=== PATIENT | male | born 1950 | race Caucasian/White ===

== ENCOUNTER 2023-07-11 19:23 | Observation (INO) | payer MEDICARE, OTHER, SELFPAY ==
[2023-07-11] VITALS (9 sets, daily range): BP systolic 109–148; BP diastolic 52–83; BMI 25.8; BMI 25.0
--- NOTE | 2023-07-11 13:56 | ED.GENMED ---
History of Present Illness
General
Chief Complaint: Chest Pain
Time Seen by Provider: 07/11/23 13:56
Travel History
Have you had any contact with someone who has COVID-19?: No
Do you have any symptoms of coronavirus? Fever > 100 degrees, chills, cough, shortness of breath, sore throat, loss of taste or smell, muscle aches, or headache?: No
History of Present Illness
History of Present Illness:
HPI: Patient presents due to chest discomfort located in the middle of his chest that started about 2 hours ago. He does have a history of CAD with stents and has had cardiac arrest in the past. His symptoms are currently resolved. He did have
nitroglycerin earlier. It is not clear if the nitroglycerin was clearly the cause of his resolution of pain.
EXAM:
GENERAL: Well appearing in no distress
HEENT: Moist oral mucosa
CARDIOVASCULAR: No murmurs, normal heart rate and rhythm, No chest wall tenderness
PULMONARY: No respiratory distress, breath sounds are clear and equal
ABDOMEN: Soft with no peritoneal signs, no tenderness
NEUROLOGIC: Excellent strength all extremities, no coordination deficits
PSYCHIATRIC: Appropriate mental status, normal insight and judgement
EXTREMITIES: Nontender, no edema, moves all extremities equally
SKIN: No rash, no lesions
ED COURSE:
2 PM: I initially evaluated patient
NUMBER AND COMPLEXITY OF PROBLEMS ADDRESSED AT THE ENCOUNTER
� Chronic conditions affecting care: CAD/coronary stents, [place], has pacemaker, he has had cardiac arrest in the past
� Acute Exacerbation and/or Progression of Chronic Illness: This is an acute problem
� Differential Diagnosis includes: ACS, dysrhythmia
AMOUNT AND/OR COMPLEXITY OF DATA TO BE REVIEWED AND ANALYZED
� I performed an independent evaluation of and my interpretation is:
EKG: AV paced, rate of 89, LVH with associated ST abnormality
CT:
X-rays:
Laboratory Studies: Initial troponin less than 0.012, repeat 0.013, chemistries and CBC relatively unremarkable
Other:
� Review of other/old records: I reviewed echo from 06/29/2023 that shows evidence for LVH, EF 60 to 65%
� Clinical information was obtained by an independent historian: I spoke to son at bedside
� Prescriptions/Medications Considered but not given:
� Further testing considered but not performed:
RISK OF COMPLICATIONS AND/OR MORBIDITY OR MORTALITY OF PATIENT MANAGEMENT
� Social determinants of health affecting care: Lives at home
� Discussion with other providers: Discussed with cardiology and notified hospitalist at about 5:20 PM for admission
� Escalation of care including admission/observation vs risk of discharge considered: Cardiology prefers patient stay in the hospital. Initial troponin is relatively unremarkable. He has remained comfortable in his stay in the
ER. He describes no exertional symptoms.
Past History
Past History
ED Past Medical History: CAD, GERD, Hypercholesterolemia, [place], Other (History of vasovagal syncope in the past), Other (hepatitis C, asbestosis) and Other (shingles in R groin and R back, hemorrhoids)
ED Past Surgical History: Appendectomy and Cardiac (Single-vessel LAD angioplasty with stenting Jul 2018, Stents X 2, Pacemaker)
Social History
Tobacco: Non-smoker
Alcohol: Occasional
Drug: None
Personal:
Living: with family
Employment: Retired
Family History
Family History: Other (reviewed and noncontributory)
Phy Exam
Physical Exam
Physical Exam:
See HPI
Scores
Heart Score for Chest Pain Patients
STEMI patient?: Not applicable
Course
Orders/Labs/Results
Orders:
Orders
07/11/23 13:39
EKG [Electrocardiogram (*1)] Urgent
Reason for Study: Chest Pain
EKG- Treatment ONCE
07/11/23 13:54
Complete Blood Count/With Diff Urgent
Comprehensive Metabolic Panel Urgent
Troponin I Urgent
07/11/23 15:11
Troponin I Urgent
Abnormal Lab Results
07/11/23
13:54
Chloride 111 H mmol/L
(98-107)
BUN 22 H mg/dl
(9-20)
Glucose 116 H mg/dl
(70-99)
Total Bilirubin 1.4 H mg/dl
(0.2-1.3)
07/11/23 13:54
07/11/23 13:54
Vital Signs
Initial and Last Documented VS:
Initial Vital Signs
Temp Pulse Resp BP Pulse Ox
98.3 F 85 16 122/76 98
07/11/23 13:44 07/11/23 13:44 07/11/23 13:44 07/11/23 13:44 07/11/23 13:44
Last Documented Vital Signs
Temp Pulse Resp BP Pulse Ox
98.3 F 70 15 122/79 95
07/11/23 13:44 07/11/23 17:15 07/11/23 17:15 07/11/23 17:00 07/11/23 17:15
*Critical Care Note
Total Time (30-74mins, 75-104mins- exclusive of procedures): Not Applicable
ED Attending Note
-
Portions of this chart may have been created with voice recognition software.� Occasional wrong word or��sound alike� substitutions may have occurred due to the inherent limitations of voice recognition software.
Discharge Plan
Departure
Patient Disposition: Admit
Date of Disposition: 07/11/23
Time of Disposition: 17:10
Presentation/result/management discussed w/ accepting MD/DO: Hospitalist
Discharge Problem:
Chest pain
Prescriptions:
No Action
nitroglycerin 0.4 MG tablet, sublingual
0.4 mg sublingual [id number] PRN (Reason: chest pain) Qty: 25 0RF
aspirin 81 MG tablet,delayed release (DR/EC)
81 mg PO DAILY
atorvastatin 20 mg Tablet
20 mg PO DAILY
metoprolol succinate 25 mg Tablet Extended Release 24 Hr
25 mg PO DAILY
tadalafil 10 mg Tablet
10 mg PO DAILY PRN (Reason: erectile dysfunction)
Referrals:
Carlos Velásquez MD [Family Provider] -
Interventions
Interventions:
*Risk Screen - Suicide Last Done: 07/11/23 13:54
*General Assessment Last Done: 07/11/23 13:54
*Neglect/Abuse Screening Last Done: 07/11/23 13:54
ED- Fall Risk Assessment Last Done: 07/11/23 13:54
*ED COVID-19 Vaccine History Last Done: 07/11/23 13:54
ED- Cardiac Assessment Last Done: 07/11/23 13:51
[2023-07-11 14:06] LABS: % Basophils 0.8 % (0-2); % Eosinophils 1.9 % (0-6); % Immature Granulocytes 0.2 % (0-0.5); % Lymphocytes 29.4 % (20.5-51.1); % Monocytes 6.4 % (1.7-9.3); % Neutrophils 61.3 % (42.2-75.2); Absolute Basophils 0.1 10^3/uL (0-0.2); Absolute Eosinophils 0.2 10^3/uL (0-0.7); Absolute Lymphocytes 2.5 10^3/uL (1.2-3.4); Absolute Monocytes 0.5 10^3/uL (0.1-0.6); Absolute Neutrophils 5.1 10^3/uL (1.4-6.5); Hematocrit 41.9 % (39.0-52.0); Hemoglobin 14.6 g/dL (13.0-18.0); Mean Corp Hgb Conc. 34.8 g/dL (33.0-37.0); Mean Corpuscular Hgb 30.5 pg (27.0-31.0); Mean Corpuscular Volume 87.5 fL (80.0-94.0); Mean Platelet Volume 10.2 fL (7.4-10.4); Nucleated Red Blood Cells % 0 % (-); Platelet Count 191 10^3/uL (130-400); Red Blood Cell Count 4.79 10^6/uL (4.70-6.10); White Blood Cell Count 8.3 10^3/uL (4.8-10.8)
[2023-07-11 14:29] LABS: Troponin I < 0.012 ng/ml
[2023-07-11 14:36] LABS: ALT (SGPT) 18 U/L (0-50); AST (SGOT) 27 U/L (17-59); Albumin 4.2 g/dl (3.5-5.0); Alkaline Phosphatase 102 U/L (38-126); Blood Urea Nitrogen 22 mg/dl (9-20); Calcium 9.4 mg/dl (8.4-10.2); Carbon Dioxide 24 mmol/L (22-30); Chloride 111 mmol/L (98-107); Estimated Creatinine Clearance 71 ml/min; Glucose 116 mg/dl (70-99); Sodium 140 mmol/L (135-145); Total Bilirubin 1.4 mg/dl (0.2-1.3); Total Protein 6.5 g/dl (6.3-8.2); eGFR > 60.00
--- NOTE | 2023-07-11 15:21 | CON.CAR ---
Addendum entered and electronically signed by Elvis Talley MD 07/11/23 19:26:
72-year-old man with history of anterior IL and LAD PCI in 2011 with repeat LAD PCI in 2019, history of neurocardiogenic syncope with prolonged pauses resulting in pacemaker implantation. Recently with symptoms of near syncope and dyspnea leading
to pacemaker reprogramming and a Lexiscan sestamibi study that showed normal perfusion, echo which showed septal hypertrophy and a minimal LVOT gradient, now with episodes of lightheadedness and dyspnea that have recurred along with chest tightness.
PMH: Neurocardiogenic syncope, Medtronic dual-chamber pacemaker, CAD/PCI to the LAD, hypertension, back pain, hyperlipidemia
PSH: Appendectomy
SH: , non-smoker nondrinker, Sikhism, lives with family
Family history noncontributory
Meds and allergies reviewed
ROS negative except as above
136/82, pulse 71, respirate 12, afebrile
No acute distress at present
Head neck exam unremarkable
Lungs clear
Cardiac unremarkable
Abdomen benign
Extremities without edema
EKG atrially paced, ventricularly paced with fusion, ST and T wave changes consistent with LVH, similar to prior tracings
Hemoglobin 14.6, BUN and creatinine 22 and 1, potassium is 4, troponin is 0.013
Impression:
Episodic near syncope and chest pain
Near syncope
Chest pain
Abnormal ECG
h/o neurocardiogenic syncope
s/p Medtronic dual chamber PPM placed for SSS and 7 second pause 07/30/19
CAD
s/p 3.5 mm Xience stent to mid LAD in the setting of AWMI with peak Troponin 0.8 in 2010
s/p 3.5 mm Xience stent to the prox-mid LAD 07/20/18
stable CAD by cardiac cath 07/29/19HTN
Chronic back pain/spinal stenosis
Plan:
He presents with ongoing chest pain. His recent sestamibi perfusion study was normal, but with ongoing chest symptoms symptoms, shortness of breath and near syncope that are unexplained, with a long history of CAD and we will proceed with cardiac
catheterization. If his coronary anatomy is stable I would favor a GI consultation.
Of late he has had symptoms of dysphagia to the point where he has considered going to the emergency department.
His episodes of lightheadedness remain unexplained and could relate to his long history of neurocardiogenic syncope, but pacemaker programming changes have had only limited success. We will discuss with electrophysiology.
Original Note:
Consultation
Consultation Request
Date/Time Consultation Requested: 07/11/23
Date/Time Consultation Performed: 07/11/23
Requesting Provider: Dr. Ogden in the ER
Performing Provider: Dr. MADISON Talley
Reason for Consultation: Chest pain, near syncope
Medical History
-
History of Present Illness:
Patient came to [facility] today after an episode of chest pain and near syncope and cardiology consult has been requested. Patient started with episodes of chest tightness, SOB and near syncope approximately Spring 2022. Patient recalls the episodes
happened a few times a week initially and then increased to daily around Fall 2022. Patient has a h/o CAD with IL and LAD PCI in 2010. He then had prox LAD PCI in 2018. He had chest pain similar to previous IL and PCI pain prompting cath 07/2019 that
showed stable CAD. He also has a h/o neurocardiogenic syncope including a positive tilt table test. Patient had a 7 second pause leading to a PPM in 07/2019. Patient recalls that initial PPM programming left him SOB and that base rate was increased
and he felt better. When these episodes started last year he had programming changes to include AAIR to DDDR. Patient had fewer symptoms with rate responsiveness rather than rate drop. Due to ongoing symptoms he had a Lexiscan nuclear stress test
05/02/23 that showed normal perfusion imaging. When he saw Dr. Talley in the office 06/19/23 overall he was feeling better and episodes were happening 2-3 times a week instead of daily which was considered an improvement. Patient says that since then
he has resumed with daily episodes. His episode today was unusual in that it lasted for an hour then seemed to improve and then returned, this was the longest episode he has ever had. 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
tightness. He was SOB. He felt hot, but not diaphoretic. He stopped driving, but symptoms continued. He asked his to pull the car over and he tried laying down in the passenger seat, but again no improvement. He took a NTG SL on the way to the
ER and after 15+ minutes the pain resolved, but this also coincided with being brought back to his ER bed for evaluation. He is pain free now.
PMH:
h/o neurocardiogenic syncope
s/p Medtronic dual chamber PPM placed for SSS and 7 second pause 07/30/19
CAD
s/p 3.5 mm Xience stent to mid LAD in the setting of AWMI with peak Troponin 0.8 in 2010
s/p 3.5 mm Xience stent to the prox-mid LAD 07/20/18
stable CAD by cardiac cath 07/29/19
HTN
Chronic back pain/spinal stenosis
Past Medical History
Past Medical History: Other (in HPI)
Past Surgical History: Appendectomy and Cardiac (LAD PCI 2018, Medtronic PPM)
Social History
Tobacco: Non-Smoker
Alcohol: None
Drug: None
Personal:
Living: With Family
Family History
Family History: CAD and Cancer
Allergies / Home Medications
Allergy/AdvReac Type Severity Reaction Status Date / Time
oxycodone AdvReac Anxiety Verified 07/11/23 13:44
Medication Instructions Recorded Confirmed Type
nitroglycerin 0.4 mg sublingual 0.4 mg sublingual [id number] PRN 09/15/15 03/07/20 Rx
tablet chest pain #25 tabs
aspirin 81 mg tablet,delayed 81 mg PO QPM Blood clot 07/20/18 03/07/20 History
release prevention/tx
atorvastatin 20 mg tablet 20 mg PO DAILY 07/11/23 07/11/23 History
metoprolol succinate 25 mg 25 mg PO DAILY 07/11/23 07/11/23 History
tablet,extended release 24 hr
tadalafil 10 mg tablet 10 mg PO DAILY PRN erectile 07/11/23 07/11/23 History
dysfunction
Review of Systems
-
History Source: Patient and Family (son bedside helping with HPI)
All other systems: Negative unless noted
Physical Exam
Vital Signs
Temp Pulse Resp BP Pulse Ox
98.3 F 70 14 123/68 95
07/11/23 13:44 07/11/23 14:45 07/11/23 14:45 07/11/23 14:00 07/11/23 14:45
GEN: No distress, awake, alert and oriented x3
HEENT: EOMI, MMM
LUNGS: CTA B/L, no wheezes or rales
CV: Left ACW implant site without hematoma or ecchymosis. Reg, 1/6 systolic murmur
ABD: soft, BS+, NT, ND
EXT: No clubbing, cyanosis, lesions or edema B/L
NEURO: Gross non-focal
SKIN: Warm, dry and pink. No rash
Lab Results
07/11/23 13:54
07/11/23 13:54
Troponin I < 0.012 ng/ml 07/11/23 13:54
Impression / Plan
-
PCP: Dr. Velásquez
Cardiology: Dr. MADISON Talley
Impression:
Episodic near syncope and chest pain
Near syncope
Chest pain
Abnormal ECG
h/o neurocardiogenic syncope
s/p Medtronic dual chamber PPM placed for SSS and 7 second pause 07/30/19
CAD
s/p 3.5 mm Xience stent to mid LAD in the setting of AWMI with peak Troponin 0.8 in 2010
s/p 3.5 mm Xience stent to the prox-mid LAD 07/20/18
stable CAD by cardiac cath 07/29/19
HTN
Chronic back pain/spinal stenosis
Echo 07/09/18: EF 65%, mild MR, mild AI
Echo 07/29/19: EF 55%, mild MR, mild AI
Echo 06/29/23: Moderate concentric left ventricular hypertrophy, most notably septal and apical segments, EF 60-65%, resting LVOT gradient of 7 mmHg and 19 mmHg with Valsalva, mild MR, mild aortic regurgitation, normal right heart, ascending aorta is
4 cm at the arch.
�
Plan:
-Patient came to [facility] today after an episode of chest pain and near syncope and cardiology consult has been requested. Patient started with episodes of chest tightness, SOB and near syncope approximately Spring 2022. Patient recalls the episodes
happened a few times a week initially and then increased to daily around Fall 2022. Patient has a h/o CAD with IL and LAD PCI in 2010. He then had prox LAD PCI in 2018. He had chest pain similar to previous IL and PCI pain prompting cath 07/2019 that
showed stable CAD. He also has a h/o neurocardiogenic syncope including a positive tilt table test. Patient had a 7 second pause leading to a PPM in 07/2019. Patient recalls that initial PPM programming left him SOB and that base rate was increased
and he felt better. When these episodes started last year he had programming changes to include AAIR to DDDR. Patient had fewer symptoms with rate responsiveness rather than rate drop. Due to ongoing symptoms he had a Lexiscan nuclear stress test
05/02/23 that showed normal perfusion imaging. When he saw Dr. Talley in the office 06/19/23 overall he was feeling better and episodes were happening 2-3 times a week instead of daily which was considered an improvement. Patient says that since then
he has resumed with daily episodes. His episode today was unusual in that it lasted for an hour then seemed to improve and then returned, this was the longest episode he has ever had. 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
tightness. He was SOB. He felt hot, but not diaphoretic. He stopped driving, but symptoms continued. He asked his to pull the car over and he tried laying down in the passenger seat, but again no improvement. He took a NTG SL on the way to the
ER and after 15+ minutes the pain resolved, but this also coincided with being brought back to his ER bed for evaluation. He is pain free now.
-Initial Troponin undetectable despite an hour of pain prior to arrival. ECG is abnormal, but is stable for him with known paced rhythm and h/o LVH as reviewed by me.
-Trend Troponin
-No need to repeat echo
-Patient with a h/o CAD and is having chest pain. Talked with patient and son about stress test in April and pursuing cardiac cath given ongoing chest pain episodes that are increasing in frequency.
-Device check 07/05/23 with no evidence of Afib or high ventricular rate episodes.
[2023-07-11 15:46] LABS: Troponin I 0.013 ng/ml
--- NOTE | 2023-07-11 18:40 | HPS.HSE ---
Family Physician
-
Family Physician: Carlos Velásquez
Chief Complaint
-
Chest pain
History of Present Illness
Patient is 72 years old with history of hypertension, CAD, chronic back pain, pacemaker implantation in the past history neurocardiogenic syncope, presented to the hospital with chest pain and near syncope. Patient has some chest discomfort on and
off and episodes of syncope in the past for which she has tilt table test done and he also had sick sinus for which he had pacemaker. Chest discomfort on and off and has seen cardiology as outpatient but today he had more intense chest pain and
lasted longer than his usual intermittent pains he was driving the car and he started to have substernal chest tightness medium intensity associated with shortness of breath and after stopping driving his symptoms continue and took some
nitroglycerin and pain was relieved. Denies nausea vomiting fevers or chills. In the ED he is chest pain-free by the time of my evaluation. Cardiology consulted. He was referred to hospitalist for evaluation.
Medical History
Past Medical History
Past Medical History: Reports Other (Hypertension, chronic back pain, neurocardiogenic syncope, pacemaker, CAD.)
Past Surgical History: Reports Other (Pacemaker, PCI with stents in the LAD in the past, appendectomy.)
Social History
Tobacco: Non-smoker
Alcohol: None
Drug: None
Family History
Family History: CAD
Allergies / Home Medications
Allergies reflects when Allergies were last updated in [facility].
Home Medications with original date entered in [facility]
Allergy/Medication List:
Allergies
Allergy/AdvReac Type Severity Reaction Status Date / Time
oxycodone AdvReac Anxiety Verified 07/11/23 13:44
Home Medications
nitroglycerin 0.4 mg sublingual tablet 0.4 mg sublingual [id number] PRN chest pain #25 tabs 09/15/15
aspirin 81 mg tablet,delayed release 81 mg PO DAILY Blood clot prevention/tx 07/20/18
atorvastatin 20 mg tablet 20 mg PO DAILY 07/11/23
metoprolol succinate 25 mg tablet,extended release 24 hr 25 mg PO DAILY 07/11/23
tadalafil 10 mg tablet 10 mg PO DAILY PRN erectile dysfunction 07/11/23
Review of Systems
-
A 12 point ROS was completed and negative except as noted: Yes
Physical Exam
Vital Signs
Vital Signs
Temp Pulse Resp BP Pulse Ox
98.3 F 71 12 136/82 97
07/11/23 13:44 07/11/23 18:00 07/11/23 18:00 07/11/23 18:00 07/11/23 18:00
Physical exam:
General: Well Developed, Well Nourished and No Apparent Distress
HEENT: Normocephalic, Atraumatic and Moist Mucous Membranes
Respiratory: Clear to Auscultation; Negative Wheezes, Rales or Rhonchi
Cardiac: Regular Rhythm and S1/S2
GI: Soft, Nontender and Nondistended
Musculoskeletal: No Clubbing, No Cyanosis and No Edema
Neuro: Awake, Alert and Oriented
Psych: Calm
Physical Exam
General: Other
Laboratory Results
-
07/11/23 13:54
07/11/23 13:54
Laboratory Results
Total Bilirubin 1.4 mg/dl (0.2-1.3) H 07/11/23 13:54
AST 27 U/L (17-59) 07/11/23 13:54
ALT 18 U/L (0-50) 07/11/23 13:54
Alkaline Phosphatase 102 U/L (38-126) 07/11/23 13:54
Troponin I 0.013 ng/ml 07/11/23 15:11
Impression/Plan
-
IMPRESSION:
Patient 72 years old male with history of CAD and neurocardiogenic syncope came to the with recurrent chest pain and near syncope. Concerns for angina pectoris.
Impression:
Chest pain
Near syncope
Conditions prior to presentation:
CAD
Chronic back pain
Pacemaker in the past for sick sinus syndrome
PLAN:
Cardiac monitoring
Trend cardiac enzymes
Might need cardiac catheterization
Cardiology consult appreciated
Continue his cardiac medications
DVT prophylaxis Lovenox subcu
CODE STATUS full code discussed with patient
--- NOTE | 2023-07-11 22:20 | PTCARENOTE ---
Received patient from ER, AAOx4. Patient ambulating with steady gait. No c/o pain at this time. Admitting dx near syncope and lightheadedness bed alarm placed at this time for safety, patient agreeable with this and states that he will call for
any assistance OOB. Oriented to unit. Call dudley in reach. Plan of care continues
[2023-07-12 03:10] VITALS: BP 128/74
--- NOTE | 2023-07-12 07:39 | W.PN.HOSP.TC ---
Today's Communication/Plan
-
Continue current cardiac medications and cardiac monitoring.
Assessment / Plan
Assessment / Plan
Physical exam:
General: Well Developed, Well Nourished and No Apparent Distress
HEENT: Normocephalic, Atraumatic and Moist Mucous Membranes
Respiratory: Clear to Auscultation; Negative Wheezes, Rales or Rhonchi
Cardiac: Regular Rhythm and S1/S2
GI: Soft, Nontender and Nondistended
Musculoskeletal: No Clubbing, No Cyanosis and No Edema
Neuro: Awake, Alert and Oriented
Psych: Calm
A/P:
Impression:
Chest pain
Near syncope
Conditions prior to presentation:
CAD
Chronic back pain
Pacemaker in the past for sick sinus syndrome
PLAN:
Cardiac monitoring
Trended cardiac enzymes, Trop less than 0.012--> 0.013
Might or might not need cardiac catheterization-->defer to cardiology
Cardiology consult appreciated--> we will follow-up further recommendations today
Discharge disposition after cardiology evaluation
Continue his cardiac medications
DVT prophylaxis Lovenox subcu
CODE STATUS full code discussed with patient
Anticipated Discharge: 24 - 48 hours
Subjective/Interval History
-
Date of Service: July 12, 2023
Patient denies any chest pain or shortness of breath today.
Objective Data
-
Labs:
Laboratory Results
07/12/23
06:00
WBC Pending
Hgb Pending
Hct Pending
Plt Count Pending
Sodium Pending
Potassium Pending
Chloride Pending
Carbon Dioxide Pending
BUN Pending
Creatinine Pending
Glucose Pending
Calcium Pending
Vital Signs:
Vital Signs
Temp Pulse Resp BP Pulse Ox
98.3 F 71 18 128/74 98
07/12/23 03:10 07/12/23 03:10 07/12/23 03:10 07/12/23 03:10 07/12/23 03:50
I&O
07/11/23 07/12/23 07/13/23
06:59 06:59 06:59
Intake Total 480 / 480
Balance 480 / 480
Review of Systems
-
All other systems: Reviewed and negative
[2023-07-12] MEDS: TOPROL XL 25 MG PO (07:57)
[2023-07-12] MEDS: LIPITOR 20 MG PO (07:58)
[2023-07-12] MEDS: ASPIR LOW (ENTERIC COATED) 81 MG PO (07:58)
[2023-07-12 08:00] LABS: Hemoglobin 14.6 g/dL (13.0-18.0); Mean Corpuscular Volume 88.5 fL (80.0-94.0); Mean Platelet Volume 10.3 fL (7.4-10.4); Platelet Count 182 10^3/uL (130-400); Red Blood Cell Count 4.86 10^6/uL (4.70-6.10); White Blood Cell Count 7.1 10^3/uL (4.8-10.8)
[2023-07-12 08:35] VITALS: BP 124/73
[2023-07-12 09:38] LABS: Blood Urea Nitrogen 22 mg/dl (9-20); Calcium 9.3 mg/dl (8.4-10.2); Carbon Dioxide 22 mmol/L (22-30); Chloride 108 mmol/L (98-107); Estimated Creatinine Clearance 79 ml/min; Glucose 96 mg/dl (70-99); Potassium 3.9 mmol/L (3.5-5.1); Sodium 139 mmol/L (135-145); eGFR > 60.00
[2023-07-12 11:21] VITALS: BP 124/68
--- NOTE | 2023-07-12 15:23 | W.PN.CARDCBS ---
Addendum entered and electronically signed by Niko Diaz MD 07/12/23 15:58:
I saw and examined the patient.
The Director Visual's note was reviewed and I agree with the note.
Comment:
GEN: No distress, awake, Ox3
HEENT: supple, anicteric, mmm
LUNGS: CTA, no wheezes/rales
CV: Reg, S1/S2, 1/6 syst LSB, no gallop
ABD: soft, BS+, NT/ND
EXT: No edema
NEURO: Gross non-focal
SKIN: No rash
Plan:
No further chest pains. Troponin are negative.
Plan will be for cardiac cath as outpatient on Monday.
Continue aspirin, metoprolol, and atorvastatin.
Patient advised if symptoms worsen to return to the emergency room.
Original Note:
Today's Communication / Plan
-
D/C to home
Return for cath as an outpatient on Monday
Impression / Plan
-
PCP: Dr. Velásquez
Cardiology: Dr. MADISON Talley
Impression:
Episodic near syncope and chest pain
Near syncope
Chest pain
Abnormal ECG
h/o neurocardiogenic syncope
s/p Medtronic dual chamber PPM placed for SSS and 7 second pause 07/30/19
CAD
s/p 3.5 mm Xience stent to mid LAD in the setting of AWMI with peak Troponin 0.8 in 2010
s/p 3.5 mm Xience stent to the prox-mid LAD 07/20/18
stable CAD by cardiac cath 07/29/19
HTN
Chronic back pain/spinal stenosis
Echo 07/09/18: EF 65%, mild MR, mild AI
Echo 07/29/19: EF 55%, mild MR, mild AI
Echo 06/29/23: Moderate concentric left ventricular hypertrophy, most notably septal and apical segments, EF 60-65%, resting LVOT gradient of 7 mmHg and 19 mmHg with Valsalva, mild MR, mild aortic regurgitation, normal right heart, ascending aorta is
4 cm at the arch.
�
Plan:
-Troponin serially normal. No more chest pain since admission.
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 Given serially normal Troponin and being pain free, the patient was offered discharge to home and return for cardiac cath on
Monday morning. Patient is agreeable and will return to [facility] if he has recurrent pain.
-Patient with a h/o CAD and has had chest pain resulting in PCI and other times chest pain resulting in stable cath.
-Device check 07/05/23 with no evidence of Afib or high ventricular rate episodes.
-D/C to home
HPI: Patient came to [facility] today after an episode of chest pain and near syncope and cardiology consult has been requested. Patient started with episodes of chest tightness, SOB and near syncope approximately Spring 2022. Patient recalls the episodes
happened a few times a week initially and then increased to daily around Fall 2022. Patient has a h/o CAD with OK and LAD PCI in 2010. He then had prox LAD PCI in 2018. He had chest pain similar to previous OK and PCI pain prompting cath 07/2019 that
showed stable CAD. He also has a h/o neurocardiogenic syncope including a positive tilt table test. Patient had a 7 second pause leading to a PPM in 07/2019. Patient recalls that initial PPM programming left him SOB and that base rate was increased
and he felt better. When these episodes started last year he had programming changes to include AAIR to DDDR. Patient had fewer symptoms with rate responsiveness rather than rate drop. Due to ongoing symptoms he had a Lexiscan nuclear stress test
05/02/23 that showed normal perfusion imaging. When he saw Dr. Talley in the office 06/19/23 overall he was feeling better and episodes were happening 2-3 times a week instead of daily which was considered an improvement. Patient says that since then
he has resumed with daily episodes. His episode today was unusual in that it lasted for an hour then seemed to improve and then returned, this was the longest episode he has ever had. 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
tightness. He was SOB. He felt hot, but not diaphoretic. He stopped driving, but symptoms continued. He asked his to pull the car over and he tried laying down in the passenger seat, but again no improvement. He took a NTG SL on the way to the
ER and after 15+ minutes the pain resolved, but this also coincided with being brought back to his ER bed for evaluation. He is pain free now.
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
Subjective
Date of Service: July 12, 2023
No more chest pain
Objective
Labs:
07/12/23 07:44
07/12/23 07:44
Labs
Hgb 14.6 g/dL (13.0-18.0) 07/12/23 07:44
Hct 43.0 % (39.0-52.0) 07/12/23 07:44
Plt Count 182 10^3/uL (130-400) 07/12/23 07:44
Sodium 139 mmol/L (135-145) 07/12/23 07:44
Potassium 3.9 mmol/L (3.5-5.1) 07/12/23 07:44
BUN 22 mg/dl (9-20) H 07/12/23 07:44
Creatinine 0.9 mg/dL (0.7-1.3) 07/12/23 07:44
Glucose 96 mg/dl (70-99) 07/12/23 07:44
Troponins
07/11/23 07/11/23
13:54 15:11
Troponin I < 0.012 0.013
Vital Signs and I&O:
Vital Signs
Temp Pulse Resp BP Pulse Ox
97.8 F 66 18 124/68 96
07/12/23 11:21 07/12/23 11:21 07/12/23 11:21 07/12/23 11:21 07/12/23 11:21
Vital Signs
Temp Pulse Resp BP Pulse Ox
97.8 F 66 18 124/68 96
07/12/23 11:21 07/12/23 11:21 07/12/23 11:21 07/12/23 11:21 07/12/23 11:21
Intake & Output
07/10/23 07/11/23 07/12/23 07/13/23
06:59 06:59 06:59 06:59
Intake Total 480 / 480
Balance 480 / 480
Physical Exam
Physical Exam
GEN: No distress, awake, alert and oriented x3
HEENT: EOMI, MMM
LUNGS: CTA B/L, no wheezes or rales
CV: Reg, 1/6 systolic murmur
ABD: soft, BS+, NT, ND
EXT: No clubbing, cyanosis, lesions or edema B/L
NEURO: Gross non-focal
SKIN: Warm, dry and pink. No rash
--- NOTE | 2023-07-12 15:45 | W.DS.TRANS ---
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
-
Discharge Instructions:
Discharge Diagnosis/Procedures Chest pain, normal Troponin level, history of
coronary artery disease, history of permanent
pacemaker
Diet Low Fat
Activity No strenuous activity
Driving Restrictions As prior to admission
Bathing Restrictions None
Stop these medications: -STOP taking tadalafil until after your cardiac
catheterization.
Instructions:
Stand-Alone Forms:
Changes to Home Medications: No
Discharge Medications:
DC Medications w/original date entered in [employer]
nitroglycerin 0.4 mg sublingual tablet 0.4 mg sublingual [id number] PRN chest pain #25 tabs 09/15/15
aspirin 81 mg tablet,delayed release 81 mg PO DAILY Blood clot prevention/tx 07/20/18
atorvastatin 20 mg tablet 20 mg PO DAILY High Cholesterol 07/11/23
metoprolol succinate 25 mg tablet,extended release 24 hr 25 mg PO DAILY Heart Disease/Condition 07/11/23
Home Medication Changes
Pending Results: No
--- NOTE | 2023-07-12 16:28 | CM ---
CM following re: d/c planning
Chart reviewed
CM met with the patient at bedside; IA completed
Pt is here as observation, WILSON letter reviewed and copy provided
Pt states he resides in with his spouse in a 2SH with 1STE
[facility] patient reports independence at baseline
Pt has no past hx of VN/SNF and the only DME owned is a r/w, spc, & shower chair
Pt has prescription coverage and rx's are filled at [facility] on [facility]
Pt PCP-Dr. Carlos Velásquez
Pt has been cleared medically for d/c and has no needs
PLAN; d/c home no needs
--- NOTE | 2023-07-12 17:57 | W.DCSUMMARY ---
Discharge Summary
Discharge Data
Date of Admission: 07/11/23
Date of Discharge: 07/12/23
-
Pending Results: No
Hospital Course
Patient is 72 years old male with history of CAD, neurocardiogenic syncope, pacemaker in the past, chronic back pain presented to the hospital with recurrent chest pain and recurrent lightheadedness near syncope. Patient was kept in observation in
the hospital. Cardiology consulted. Cardiac enzymes remained normal. Telemetry did not show any significant arrhythmias. Cardiology was planning to do a cardiac catheterization but had to be postponed for the following day but patient did not
want to wait any longer and since he was hemodynamically stable and asymptomatic, cardiology agreed to discharge him today and will have him follow-up as outpatient. Cardiology also was contemplating EPS evaluation and or GI evaluation but only
after further cardiac workup is completed. No other events were noticed. Patient will be discharged in stable condition today.
Discharge Plan
-
Patient Disposition: Home (Routine Discharge)
Discharge Diagnosis/Procedures: Chest pain, normal Troponin level, history of coronary artery disease, history of permanent pacemaker
Condition: Fair
Diet: Low Fat
Activity: No strenuous activity
Driving Restrictions: As prior to admission
Bathing Restrictions: None
Stop these medications:: -STOP taking tadalafil until after your cardiac catheterization.
Referrals:
Carlos Velásquez MD [Family Provider] -
Elvis Talley MD [Active] - 07/14/23 (The cardiac labor and employment paralegal at [facility] will call you with an arrival time, but as of now you are the first case scheduled for Monday morning.)
Prescriptions:
Continued
nitroglycerin 0.4 MG tablet, sublingual
0.4 mg sublingual [id number] PRN (Reason: chest pain) Qty: 25 0RF
aspirin 81 MG tablet,delayed release (DR/EC)
81 mg PO DAILY
atorvastatin 20 mg Tablet
20 mg PO DAILY
metoprolol succinate 25 mg Tablet Extended Release 24 Hr
25 mg PO DAILY
Discontinued
tadalafil 10 mg Tablet
10 mg PO DAILY PRN (Reason: erectile dysfunction)
Discharge Orders:
Discharge Patient (As Directed); Ordered 07/12/23
Ordered By: Daysi Randhawa
Discharge Date and Time
Discharge Date/Time: 07/12/23 16:46
== END 2023-07-12 16:46 | disposition home or self-care (01) ==
LOC: 4 EAST ACU 19:23
PROVIDERS: Emergency Medicine; ADMITTING PHYSICIAN Hospitalist; CONSULT PHYSICIAN Internal Medicine Cardiovascular Disease; EMERGENCY PHYSICIAN Emergency Medicine; FAMILY PHYSICIAN Family Medicine
DX: R55 Syncope and collapse (principal); R07.9 Chest pain, unspecified; I25.10 Atherosclerotic heart disease of native coronary artery without angina pectoris; I10 Essential (primary) hypertension; E78.5 Hyperlipidemia, unspecified; G89.29 Other chronic pain; M54.9 Dorsalgia, unspecified; I25.2 Old myocardial infarction; E78.00 Pure hypercholesterolemia, unspecified; K21.9 Gastro-esophageal reflux disease without esophagitis; Z87.19 Personal history of other diseases of the digestive system; Z86.19 Personal history of other infectious and parasitic diseases; Z86.74 Personal history of sudden cardiac arrest; Z95.5 Presence of coronary angioplasty implant and graft; Z90.49 Acquired absence of other specified parts of digestive tract; Z95.0 Presence of cardiac pacemaker
CPT/HCPCS: 80048; 80053; 84484; 85025; 85027; 93005; 99285; G0378

== ENCOUNTER 2023-07-14 06:16 | Day surgery (SDC) | payer MEDICARE, OTHER, SELFPAY ==
[2023-07-14 06:25] VITALS: BP 117/70
[2023-07-14 06:59] VITALS: BMI 28.0
[2023-07-14] MEDS: LOW STRENGTH ASPIRIN 81 MG PO (07:09)
[2023-07-14] MEDS: NSS 251 ML IV (07:10)
--- NOTE | 2023-07-14 09:02 | ITS.CL.CATH ---
[facility] - Catheterization
Cardiac Catheterization
Procedure Report:
LEFT HEART CATHETERIZATION
Date of Procedure: July 14, 2023
Referring: Elvis Talley
PROCEDURES:
1. Left heart catheterization, coronary angiogram.
2. Ultrasound-guided access.
INDICATION: Mr. Miller is a 72-year-old man with history of anterior WI and LAD PCI in 2011 with repeat LAD PCI in 2019, history of neurocardiogenic syncope with prolonged pauses resulting in pacemaker implantation.� Recently with symptoms of near
syncope and dyspnea leading to pacemaker reprogramming and a Lexiscan sestamibi study that showed normal perfusion, echo which showed septal hypertrophy and a minimal LVOT gradient, now with episodes of lightheadedness and dyspnea that have recurred
along with chest tightness being referred for coronary angiogram. He was recently admitted with workup showing 3 negative troponins and an echocardiogram which showed preserved left ventricular systolic function without significant wall motion
abnormalities.
ACCESS: Left radial artery, 6 Hebrew sheath, under ultrasound guidance.
HEMODYNAMICS : (mmHg)
AO (s/d) : 102/62
LV (s/d) : 104/12
LVEDP : 24
CORONARY FINDINGS
DOMINANCE: Right
LEFT MAIN: The left main artery is a large-caliber vessel which gives rise to a left anterior descending artery and the left circumflex artery. There is 20% proximal left main stenosis, otherwise minimal luminal irregularities are present.
LEFT ANTERIOR DESCENDING: The left into descending artery is a large-caliber vessel which gives rise to 1 major diagonal branch as it courses through the anterior interventricular groove and wraps around the apex. There is 40 to 50% mid LAD
stenosis between 2 prior stents. Otherwise prior stents are patent with mild diffuse atherosclerotic plaque.
CIRCUMFLEX: The left circumflex artery is a large-caliber vessel which gives rise to 1 major obtuse marginal branch and 2 small to medium caliber left posterolateral branches. There is minimal luminal irregularities.
RIGHT CORONARY ARTERY: The right coronary artery is a large-caliber, dominant vessel which gives rise to the right posterior descending artery and of the right posterolateral system. There is minimal luminal irregularities.
RADIATION SUMMARY: Fluoro Time (min): 4.9, Dose (mGy): 330.04, DAP (Gy.cm2) : 22.7
Closure Device: Vascular band over left radial artery, 12 cc of air
CONCLUSIONS
1. Non-obstructive coronary artery disease. Prior LAD stents are patent with 40 to 50% mid LAD stenosis between 2 prior stents.
2. Significantly elevated LVEDP.
RECOMMENDATIONS
1. Goal-directed medical therapy for nonobstructive coronary artery disease and optimization of filling pressures.
2. Wean radial band per protocol.
3. Aggressive management of cardiovascular risk factors.
Copy to: Elvis Talley MD
Afsaneh Raymond MD, [facility], [facility]
[2023-07-14 09:10] VITALS: BP 99/54
== END 2023-07-14 12:21 | disposition home or self-care (01) ==
LOC: CATH 06:16
PROVIDERS: ATTENDING PHYSICIAN Internal Medicine Interventional Cardiology; FAMILY PHYSICIAN Family Medicine; OTHER PHYSICIAN Internal Medicine Cardiovascular Disease
DX: I25.10 Atherosclerotic heart disease of native coronary artery without angina pectoris (principal); I25.2 Old myocardial infarction; I10 Essential (primary) hypertension; Z95.5 Presence of coronary angioplasty implant and graft; I49.5 Sick sinus syndrome; Z95.0 Presence of cardiac pacemaker; R07.9 Chest pain, unspecified; Z79.82 Long term (current) use of aspirin
CPT/HCPCS: 76937; 93458; C1894; Q9967

== ENCOUNTER → 2023-07-20 07:31 | Outpatient (REF) | payer MEDICARE, OTHER, SELFPAY ==
[2023-07-20 08:34] LABS: Blood Urea Nitrogen 21 mg/dl (9-20); Calcium 9.2 mg/dl (8.4-10.2); Carbon Dioxide 26 mmol/L (22-30); Chloride 105 mmol/L (98-107); Glucose 108 mg/dl (70-99); Potassium 4.5 mmol/L (3.5-5.1); Sodium 138 mmol/L (135-145); eGFR > 60.00
== END ==
LOC: REG 07:31
PROVIDERS: ATTENDING PHYSICIAN Internal Medicine Interventional Cardiology; FAMILY PHYSICIAN Family Medicine
DX: I25.10 Atherosclerotic heart disease of native coronary artery without angina pectoris (principal)
CPT/HCPCS: 36415; 80048

== ENCOUNTER → 2023-10-27 13:29 | Outpatient (REF) | payer MEDICARE, OTHER, SELFPAY | LOC: MRI 13:29 | PROVIDERS: ATTENDING PHYSICIAN Physician Assistant; FAMILY PHYSICIAN Family Medicine | DX: M79.641 Pain in right hand (principal) | CPT/HCPCS: 73220; A9575 ==

== ENCOUNTER → 2023-12-11 09:54 | Outpatient (REF) | payer MEDICARE, OTHER, SELFPAY ==
[2023-12-12 13:47] LABS: Lyme Antibody Screen, EIA Equivocal (Negative)
== END ==
LOC: REG 09:54
PROVIDERS: ATTENDING PHYSICIAN Internal Medicine; FAMILY PHYSICIAN Family Medicine
DX: A69.20 Lyme disease, unspecified (principal)
CPT/HCPCS: 36415; 86617; 86618

== ENCOUNTER → 2023-12-21 08:50 | Outpatient (REF) | payer MEDICARE, OTHER, SELFPAY | LOC: RAD 08:50 | PROVIDERS: ATTENDING PHYSICIAN Family Medicine | DX: R13.10 Dysphagia, unspecified (principal) | CPT/HCPCS: 74246 ==

== ENCOUNTER → 2024-01-01 06:31 | Day surgery (SDC) | payer MEDICARE, OTHER, SELFPAY | LOC: GI 06:31 | PROVIDERS: ATTENDING PHYSICIAN Internal Medicine Gastroenterology | DX: R13.10 Dysphagia, unspecified (principal); Q39.9 Congenital malformation of esophagus, unspecified; K29.50 Unspecified chronic gastritis without bleeding | CPT/HCPCS: 43239; 88305; 88342 ==

== ENCOUNTER → 2024-08-08 06:46 | Outpatient (REF) | payer MEDICARE, OTHER, SELFPAY ==
[2024-08-08 08:37] LABS: ALT (SGPT) 19 U/L (0-50); AST (SGOT) 25 U/L (17-59); Alkaline Phosphatase 109 U/L (38-126); Blood Urea Nitrogen 23 mg/dl (9-20); Calcium 9.5 mg/dl (8.4-10.2); Carbon Dioxide 25 mmol/L (22-30); Chloride 107 mmol/L (98-107); Glucose 109 mg/dl (70-99); HDL Cholesterol 46 mg/dl; LDL Cholesterol, Calculated 57 mg/dl; Potassium 4.3 mmol/L (3.5-5.1); Sodium 141 mmol/L (135-145); Total Bilirubin 2.2 mg/dl (0.2-1.3); Total Cholesterol 118 mg/dl (50-199); Total Protein 6.3 g/dl (6.3-8.2); Triglyceride 76 mg/dl (10-149); Very Low Density Lipoprotein 15 mg/dl (0-30); eGFR > 60.00
== END ==
LOC: REG 06:46
PROVIDERS: ATTENDING PHYSICIAN Internal Medicine Cardiovascular Disease
DX: E78.5 Hyperlipidemia, unspecified (principal)
CPT/HCPCS: 36415; 80053; 80061

== ENCOUNTER → 2024-11-07 14:45 | Outpatient (REF) | payer MEDICARE, OTHER, SELFPAY | LOC: RAD 14:45 | PROVIDERS: ATTENDING PHYSICIAN Nurse Practitioner Family | DX: M25.512 Pain in left shoulder (principal) | CPT/HCPCS: 73030 ==

== ENCOUNTER 2024-11-18 06:19 | Day surgery (SDC) | payer MEDICARE, OTHER, SELFPAY | END 2024-11-18 09:30 | disposition home or self-care (01) | LOC: GI 06:19 | PROVIDERS: ATTENDING PHYSICIAN Internal Medicine Gastroenterology | DX: Z12.11 Encounter for screening for malignant neoplasm of colon (principal); K57.30 Diverticulosis of large intestine without perforation or abscess without bleeding; K64.8 Other hemorrhoids | CPT/HCPCS: G0121 ==

== ENCOUNTER → 2025-04-07 09:43 | Outpatient (REF) | payer MEDICARE, OTHER, SELFPAY | LOC: RAD 09:43 | PROVIDERS: ATTENDING PHYSICIAN Nurse Practitioner; FAMILY PHYSICIAN Family Medicine | DX: K21.9 Gastro-esophageal reflux disease without esophagitis (principal); R13.19 Other dysphagia | CPT/HCPCS: 74246 ==

== ENCOUNTER 2025-04-11 06:19 | Day surgery (SDC) | payer MEDICARE, OTHER, SELFPAY | END 2025-04-11 13:41 | disposition home or self-care (01) | LOC: GI 06:19 | PROVIDERS: ATTENDING PHYSICIAN Internal Medicine Gastroenterology; FAMILY PHYSICIAN Family Medicine | DX: R13.10 Dysphagia, unspecified (principal); Q39.9 Congenital malformation of esophagus, unspecified; K31.A14 Gastric intestinal metaplasia without dysplasia, involving the cardia; K29.50 Unspecified chronic gastritis without bleeding | CPT/HCPCS: 43249; 43239; 88305 ==